=== PATIENT | female | born 1975 | race Caucasian/White ===

== ENCOUNTER → 2017-02-25 | Outpatient (CLI) | payer OTHER ==
[2017-02-28 07:50] LABS: THROMBIN TIME FOR LA ND sec (13-19)
== END ==
LOC: CLAB 11-02 12:06
PROVIDERS: ATTEND Surgery Vascular Surgery
DX: I80.209 Phlebitis and thrombophlebitis of unspecified deep vessels of unspecified lower extremity (principal); E03.9 Hypothyroidism, unspecified
CPT/HCPCS: 36415; 81241; 83090; 84443; 85240; 85300; 85303; 85306; 85613; 85730

== ENCOUNTER 2017-07-28 06:35 | Emergency (ER) | payer OTHER ==
[2017-07-28 06:38] VITALS: BP 184/79; PULSE 64; RESP 16; TEMP 98.5; O2SAT 98
[2017-07-28] MEDS ORDERED: ASPI81CH7 CHEW (06:43)
[2017-07-28] MEDS ORDERED: LEVO50TA4 PO (06:43)
[2017-07-28] MEDS ORDERED: ATEN50TA PO (06:43)
[2017-07-28] MEDS ORDERED: DIAZ5 PO (06:43)
[2017-07-28] MEDS ORDERED: CALC1TAB12 PO (06:43)
[2017-07-28] MEDS ORDERED: HYDR25TA5 PO (06:43)
--- NOTE | 2017-07-28 07:11 | PD ---
HPI Chief Complaint: Skin Problem Time Seen by Provider: 07:07 Travel History International Travel<30 days: No Contact w/Intl Traveler<30days: No Traveled to known affect area: No History of Present Illness HPI 42y female presents to the ED with a rash to her left cheek for less than 24 hours. Says she had some tingling of her left cheek last night and thought she might have an outbreak of shingles again. She woke up this morning to a clustered group of vesicles on her cheek, located in the maxillary region. States she felt feverish last week but denies fever now. She had a cold sore on her bottom right lip yesterday but has since resolved with OTC cream. Her last episode was approximately 5 years ago in the same area. States this has never involved her eye though she did follow up with an commercial reporter then. States she has an extensive history of shingles and chicken pox in her youth. PFSH Past Medical History GERD: Yes Hypertension: Yes Medical other: Yes Thyroid Disease: Yes ?: Not Past Surgical History Tonsillectomy: Yes Social History Alcohol Use: Yes (socially) Tobacco Use: No Substance Use: No Allergies-Medications (Allergen,Severity, Reaction): Coded Allergies: codeine (Unverified Allergy, Unknown, 07/28/17) Reported Meds & Prescriptions Reported Meds & Active Scripts Active Valacyclovir (Valacyclovir HCl) 1,000 Mg Tab 1,000 Mg PO TID 7 Days Reported Valium (Diazepam) 5 Mg Tab 5 Mg PO BID PRN Calcium 500 +D (Calcium Carbonate-Cholecalciferol) 500-400 Mg-Unit Tab 1 Tab PO DAILY Levothyroxine (Levothyroxine Sodium) 50 Mcg Tab 50 Mcg PO DAILY Hydrochlorothiazide 25 Mg Tab 25 Mg PO DAILY Aspirin Children's (Aspirin) 81 Mg Chew 81 Mg CHEW DAILY Atenolol 50 Mg Tab 50 Mg PO BID Review of Systems Except as stated in HPI: all other systems reviewed are Neg Physical Exam Narrative GENERAL: Well-nourished, well-developed patient. SKIN: Focused skin assessment warm/dry. left anterior cheek, maxillary area- 2cm area of vesicles on a erythematous base without eye involvement. No extension of the lesions. HEAD: Normocephalic. EYES: No scleral icterus. No injection or drainage. PERRLA NECK: Supple, trachea midline. No JVD or lymphadenopathy. CARDIOVASCULAR: Regular rate and rhythm without murmurs, gallops, or rubs. RESPIRATORY: Breath sounds equal bilaterally. No accessory muscle use. MUSCULOSKELETAL: No cyanosis, or edema. BACK: Nontender without obvious deformity. No CVA tenderness. Data Data Last Documented VS Vital Signs Date Time Temp Pulse Resp B/P (MAP) Pulse Ox O2 Delivery O2 Flow Rate FiO2 07/28/17 07:31 07/28/17 06:38 98.5 64 16 98 Room Air Orders Orders Ed Discharge Order (07/28/17 07:12) MDM Medical Decision Making Medical Screen Exam Complete: Yes Emergency Medical Condition: Yes Differential Diagnosis Herpes zoster vs erysipelas vs varicella Narrative Course 42y female presents to the ED with a rash to her left cheek for less than 24 hours. Says she had some tingling of her left cheek last night and thought she might have an outbreak of shingles again. She woke up this morning to a clustered group of vesicles on her cheek, located in the maxillary region. States she felt feverish last week but denies fever now. She had a cold sore on her bottom right lip yesterday but has since resolved with OTC cream. Her last episode was approximately 5 years ago in the same area. States this has never involved her eye though she did follow up with an commercial reporter then. States she has an extensive history of shingles and chicken pox in her youth. Physical exam consistent with shingles not involving the eyes Patient discharged with valacyclovir as this is helped resolve her symptoms before. Patient to follow up primary care physician within a couple of days. Advised patient to return to commercial reporter if rash worsens or persists. Because of patient's history of the exact rash did not recommend immediate follow-up to commercial reporter. Diagnosis Primary Impression: Shingles Qualified Codes: B02.9 - Zoster without complications Referrals: Primary Care Physician Departure Forms: Tests/Procedures, Work Release Enter return to work date: Jul 29, 2017 Additional Instructions: Use medications as prescribed. Return to the ED for worsening symptoms. Follow up with eye doctor if rash worsens. You may return to work tomorrow. Scripts Valacyclovir (Valacyclovir) 1,000 Mg Tab 1000 MG PO TID for Mgmt Viral Infection for 7 Days, #21 TAB 0 Refills Prov: Ariel Panchal MD 07/28/17 Disposition: 01 DISCHARGE HOME Condition: Stable Blanka Sandoval Jul 28, 2017 07:11
[2017-07-28] MEDS ORDERED: VALA1TAB PO (07:12)
== END 2017-07-28 07:32 | disposition home or self-care (01) ==
LOC: NEPD 06:35
DX: B02.9 Zoster without complications (principal); I10 Essential (primary) hypertension; K21.9 Gastro-esophageal reflux disease without esophagitis
CPT/HCPCS: 99283